=== PATIENT | male | born 1945 | race Caucasian/White ===

== ENCOUNTER 2021-05-01 15:48 | Outpatient (REF) | payer OTHER, MEDICARE, SELFPAY ==
[2021-05-01 17:53] LABS: PSA,Total (Free>4and<10) 2.41 ng/mL (0.00-4.00)
== END 2021-05-01 15:49 | disposition home or self-care (01) ==
LOC: HO.LAB 15:48
PROVIDERS: PCP Internal Medicine; Visit Provider Urology
DX: Z12.5 Encounter for screening for malignant neoplasm of prostate (principal); R97.20 Elevated prostate specific antigen [PSA]
CPT/HCPCS: 36415; 84153